=== PATIENT | male | born 1970 | race Caucasian/White ===

== ENCOUNTER 2019-04-06 09:29 | Inpatient (IN) | payer MEDICAID ==
[~2019-04-06] VITALS: Ht 162.6 cm; Wt 132.6 kg
[2019-04-06] MEDS ORDERED: ONDANSETRON 2MG/ML, 2ML ONE (10:21)
[2019-04-06] MEDS ORDERED: SODIUM CHLORIDE 0.9% 1,000ML IVBOLUS ONE ×2 (10:30→11:30)
[2019-04-06] MEDS ORDERED: ONDANSETRON 2MG/ML, 2ML IVPush ONE (10:30)
[2019-04-06] MEDS ORDERED: SODIUM CHLORIDE FLUSH 10ML SYR IVF ONE (10:30)
--- NOTE | 2019-04-06 10:32 | NUR ---
URINE WALKED TO LAB
--- NOTE | 2019-04-06 10:34 | NUR ---
PT TO RADIOLOGY
[2019-04-06 10:48] LABS: ANION GAP 11 mmol/L (5-15); CALCIUM 8.6 mg/dL (8.5-10.1); CHLORIDE 105 mmol/L (98-107)
[2019-04-06 10:52] LABS: ALANINE AMINOTRANSFERASE 27 U/L (12-78); ALKALINE PHOSPHATASE 70 U/L (45-117); BILIRUBIN,TOTAL 0.6 mg/dL (0.2-1.0); CREATININE 2.73 mg/dL (0.7-1.3); TOTAL PROTEIN 6.9 g/dL (6.4-8.2)
[2019-04-06 10:58] LABS: MEAN CORPUSCULAR HGB CONC 32.8 g/dL (33.2-36.2); MEAN CORPUSCULAR VOLUME 94.6 fL (81-97); MEAN PLATELET VOLUME 8.8 fL (7.4-10.4); PLATELET COUNT 349 x10^3/uL (130-400); RED BLOOD COUNT 6.99 x10^6/uL (4.38-5.82); RED CELL DISTRIBUTION WIDTH 13.5 % (9.4-14.8)
[2019-04-06 11:18] LABS: MICROSCOPIC INDICATED
[2019-04-06 11:21] LABS: CULTURE INDICATED? NO
[2019-04-06 11:25] LABS: BASOPHILS # (AUTO) 0.03 x10^3/uL (0-0.1); BASOPHILS % (AUTO) 0 % (0-1); EOSINOPHILS # (AUTO) 0.51 x10^3/uL (0-0.4); EOSINOPHILS % (AUTO) 5 % (1-7); LYMPHOCYTES # (AUTO) 1.82 x10^3/uL (1-3.4); LYMPHOCYTES % (AUTO) 19 % (22-44); MD SCAN; MONOCYTES # (AUTO) 1.38 x10^3/uL (0.2-0.8); MONOCYTES % (AUTO) 14 % (2-9); NEUTROPHILS # (AUTO) 5.95 x10^3/uL (1.8-6.8); NEUTROPHILS % (AUTO) 62 % (42-75)
--- NOTE | 2019-04-06 11:26 | NUR ---
NOTIFIED OF CRITICAL HCT 22.7. PER MD, 2ND LITER OF IVF INFUSING. PT TO BE ADMITTED.
--- NOTE | 2019-04-06 12:16 | NUR ---
ADMITTING MD AT BEDSIDE
[2019-04-06] MEDS ORDERED: ONDANSETRON 2MG/ML, 2ML IVPush PRN (12:30)
[2019-04-06] MEDS ORDERED: ONDANSETRON ODT 4 MG PO PRN (12:30)
[2019-04-06] MEDS ORDERED: TRAZODONE 50MG TABLET PO PRN (12:30)
[2019-04-06] MEDS ORDERED: hydrALAzine 20 MG/ML, 1ML IVPush PRN (12:30)
[2019-04-06] MEDS ORDERED: ASA/APAP/ CAFFEINE TABLET PO PRN (12:30)
[2019-04-06] MEDS ORDERED: ACETAMINOPHEN 325 MG TABLET PO PRN (12:30)
[2019-04-06] MEDS ORDERED: POLYETHYLENE GLYCOL 17 GM PACKET PO PRN (12:30)
[2019-04-06] MEDS ORDERED: GUAIFENESIN/DM 200-20MG, 10ML UDC PO PRN (12:30)
[2019-04-06] MEDS ORDERED: HYDROcodone/APAP 5/325 TABLET PO PRN (12:30)
--- NOTE | 2019-04-06 13:22 | NUR ---
REPORT TO ROSA ALCOCER
[2019-04-06] MEDS ORDERED: POTASSIUM CHLORIDE 20 MEQ in LACTATED RINGERS 1,000 ML IV SCH (13:44)
[2019-04-06 13:50] VITALS: BP 108/77
[2019-04-06] MEDS: INSULIN LISPRO 100 UNITS/ML, PEN SQ-INSULIN SCH ×2 (17:06→20:29)
[2019-04-06 19:38] VITALS: BP 119/78
[2019-04-07 00:25] VITALS: BP 111/70
[2019-04-07 00:41] LABS: CLOSTRIDIUM DIFFICILE ANTIGEN NEGATIVE; CLOSTRIDIUM DIFFICILE TOXIN NEGATIVE (Negative)
[2019-04-07] MEDS ORDERED: SODIUM CHLORIDE 0.9%, 500ML IVBOLUS ONE (02:30)
[2019-04-07] MEDS ORDERED: LACTATED RINGERS 1,000 ML IV SCH (03:00)
[2019-04-07 05:10] LABS: BASOPHILS # (AUTO) 0.03 x10^3/uL (0-0.1); BASOPHILS % (AUTO) 0 % (0-1); EOSINOPHILS # (AUTO) 0.79 x10^3/uL (0-0.4); EOSINOPHILS % (AUTO) 8 % (1-7); LYMPHOCYTES # (AUTO) 2.52 x10^3/uL (1-3.4); LYMPHOCYTES % (AUTO) 27 % (22-44); MD NO; MEAN CORPUSCULAR HGB CONC 33.2 g/dL (33.2-36.2); MEAN CORPUSCULAR VOLUME 93.6 fL (81-97); MEAN PLATELET VOLUME 8.4 fL (7.4-10.4); MONOCYTES # (AUTO) 1.24 x10^3/uL (0.2-0.8); MONOCYTES % (AUTO) 13 % (2-9); NEUTROPHILS # (AUTO) 4.92 x10^3/uL (1.8-6.8); NEUTROPHILS % (AUTO) 52 % (42-75); PLATELET COUNT 304 x10^3/uL (130-400); RED BLOOD COUNT 6.16 x10^6/uL (4.38-5.82); RED CELL DISTRIBUTION WIDTH 14.1 % (9.4-14.8)
[2019-04-07 05:23] LABS: CHLORIDE 110 mmol/L (98-107)
[2019-04-07 05:28] LABS: ANION GAP 7 mmol/L (5-15); CALCIUM 7.7 mg/dL (8.5-10.1); CREATININE 1.52 mg/dL (0.7-1.3)
[2019-04-07 07:13] VITALS: BP 108/59
[2019-04-07] MEDS ORDERED: MAGNESIUM SULFATE PMX 2GM/50ML 50 ML IV ONE (07:30)
[2019-04-07] MEDS: INSULIN LISPRO 100 UNITS/ML, PEN SQ-INSULIN SCH ×4 (09:30→20:32)
[2019-04-07 09:35] VITALS: BP 117/84
[2019-04-07] MEDS ORDERED: ATOR20TA86 PO (13:01)
[2019-04-07] MEDS ORDERED: POTA10CA PO (13:01)
[2019-04-07] MEDS ORDERED: FURO20TA3 PO (13:01)
[2019-04-07] MEDS ORDERED: METF500T17 PO (13:01)
[2019-04-07] MEDS ORDERED: LOSA25TA12 PO (13:01)
[2019-04-07] MEDS ORDERED: AMLO5TAB10 PO (13:01)
[2019-04-07] MEDS ORDERED: LACTATED RINGERS 1,000 ML IVBOLUS ONE (16:00)
[2019-04-07 16:06] VITALS: BP 125/83
[2019-04-07] MEDS ORDERED: HYDROcodone/APAP 5/325 TABLET PO PRN (16:30)
[2019-04-07] MEDS ORDERED: LORazepam 0.5MG TABLET ONE (17:20)
[2019-04-07] MEDS ORDERED: LORazepam 0.5MG TABLET PO ONE (17:30)
[2019-04-07] MEDS: GUAIFENESIN 200 MG TABLET PO SCH ×2 (18:27→20:33)
[2019-04-07 20:12] LABS: FREE T4 (FREE THYROXINE) 1.11 ng/dL (0.76-1.46)
[2019-04-07 21:56] VITALS: BP 107/68
[2019-04-08] MEDS ORDERED: MAALOX/HYOSCYAMINE/LIDOCAINE 45 ML BTL PO ONE (01:00)
[2019-04-08 02:37] VITALS: BP 124/79
[2019-04-08] MEDS ORDERED: LACTATED RINGERS 1,000 ML IV SCH ×2 (03:00)
[2019-04-08] MEDS: GUAIFENESIN 200 MG TABLET PO SCH (06:17)
[2019-04-08 07:27] LABS: BASOPHILS # (AUTO) 0.03 x10^3/uL (0-0.1); BASOPHILS % (AUTO) 0 % (0-1); EOSINOPHILS # (AUTO) 0.93 x10^3/uL (0-0.4); EOSINOPHILS % (AUTO) 11 % (1-7); LYMPHOCYTES # (AUTO) 2.23 x10^3/uL (1-3.4); LYMPHOCYTES % (AUTO) 26 % (22-44); MD NO; MEAN CORPUSCULAR HEMOGLOBIN 31.3 pg (27.5-34.5); MEAN CORPUSCULAR HGB CONC 33.1 g/dL (33.2-36.2); MEAN CORPUSCULAR VOLUME 94.6 fL (81-97); MEAN PLATELET VOLUME 8.2 fL (7.4-10.4); MONOCYTES # (AUTO) 0.65 x10^3/uL (0.2-0.8); MONOCYTES % (AUTO) 8 % (2-9); NEUTROPHILS # (AUTO) 4.61 x10^3/uL (1.8-6.8); NEUTROPHILS % (AUTO) 55 % (42-75); PLATELET COUNT 262 x10^3/uL (130-400); RED BLOOD COUNT 5.94 x10^6/uL (4.38-5.82); RED CELL DISTRIBUTION WIDTH 13.9 % (9.4-14.8)
[2019-04-08 07:37] VITALS: BP 159/88
[2019-04-08 07:39] LABS: ALANINE AMINOTRANSFERASE 25 U/L (12-78); ALBUMIN 2.9 g/dL (3.4-5.0); ANION GAP 5 mmol/L (5-15); CALCIUM 8.6 mg/dL (8.5-10.1); CHLORIDE 113 mmol/L (98-107); CREATININE 1.22 mg/dL (0.7-1.3)
[2019-04-08 07:41] LABS: ALKALINE PHOSPHATASE 61 U/L (45-117); BILIRUBIN,TOTAL 0.4 mg/dL (0.2-1.0); TOTAL PROTEIN 6.3 g/dL (6.4-8.2)
[2019-04-08] MEDS: INSULIN LISPRO 100 UNITS/ML, PEN SQ-INSULIN SCH (08:50)
[2019-04-08] MEDS ORDERED: OMNIPAQUE 350 MG/ML, 150 ML BOTTLE ONE (10:02)
== END 2019-04-08 10:21 | disposition left against medical advice (07) | DRG 438 ==
LOC: ED 11:49 → EDIP 12:29 → SUATTDRO 12:49 → 3N 13:40 → 4EST 04-07 14:49 → OBSVTOIN 04-07 15:19
PROVIDERS: ADMIT Hospitalist; ATTEND Hospitalist
DX: K85.90 Acute pancreatitis without necrosis or infection, unspecified (principal); N17.0 Acute kidney failure with tubular necrosis; E46 Unspecified protein-calorie malnutrition; Z68.43 Body mass index [BMI] 50.0-59.9, adult; E87.2 Acidosis; E11.65 Type 2 diabetes mellitus with hyperglycemia; E66.01 Morbid (severe) obesity due to excess calories; E78.5 Hyperlipidemia, unspecified; E86.0 Dehydration; I10 Essential (primary) hypertension; K52.9 Noninfective gastroenteritis and colitis, unspecified
CPT/HCPCS: 36415; 71045; 74021; 74177; 76700; 80048; 80053; 80307; 81001; 82962; 83036; 83690; 83735; 84100; 84439; 84443; 85025; 87324; 93005; 93306; G0378; J2405; J3480; Q9967; J1815; J3475; J7030; J7040; J7120